=== PATIENT | male | born 1970 | race Caucasian/White ===

== ENCOUNTER 2016-12-29 05:52 | Inpatient (IN) ==
[2016-12-29] MEDS ORDERED: ONDANSETRON 4 MG/2 ML VIAL IV STA ×2 (06:16→07:35)
[2016-12-29] MEDS ORDERED: ONDANSETRON 4 MG/2 ML VIAL ONE ×2 (06:30→07:37)
[2016-12-29 06:35] LABS: Basophils # 0.1 10*3/uL (0.0-0.2); Basophils % 0.7 % (0.0-0.8); Eosinophils # 0.2 10*3/uL (0.0-0.87); Eosinophils % 1.9 % (0.00-10.9); Hematocrit 45.1 VOL% (42.0-52.0); Hemoglobin 16.2 GM/DL (14.0-18.0); Immature Granulocytes % 0.4 %; Immature Granulocytes Absolute 0.04 #; Lymphocytes # 1.8 10*3/uL (1.4-4.0); Lymphocytes % 16.8 % (21.2-54.2); Mean Corpuscular HGB Conc 35.9 GM/DL (32-36); Mean Corpuscular Hemoglobin 30 PG (27-34); Mean Corpuscular Volume 84.5 FL (87-102); Mean Platelet Volume 10.3 FL (9.6-12.0); Monocytes # 0.7 10*3/uL (0.11-0.8); Monocytes % 6.5 % (1.7-12.7); Neutrophils # 7.9 10*3/uL (1.4-7.4); Neutrophils % 73.7 % (38.7-73.9); Platelet Count 249 T/CUMM (130-400); Red Blood Count 5.34 MC/CUMM (3.8-5.5); White Blood Count 10.8 T/CUMM (4-12)
[2016-12-29 06:43] LABS: Apearance,Urine CLEAR (Clear); Bilirubin,Urine Negative (Negative); Blood, Urine Negative (Negative); Glucose,Urine (UA) Negative (Negative); Ketones,Urine Negative (Negative); Mucus,Urine Occasional /LPF (Occasional); Nitrite,Urine Negative (Negative); Protein,Urine Negative; RBC,Urine 1 /HPF (0-4); Squamous Epithelial Cell,Urine Occasional /HPF (0-10); Urine Color Yellow (Yellow); Urine Specific Gravity 1.027 (1.001-1.035); WBC,Urine 1 /HPF (0-6)
[2016-12-29 07:11] LABS: Bilirubin,Total 1.3 MG/DL (0.2-1.0); Osmolality,Calculated 281.3 MOS/KG (273-304); Potassium 3.8 MMOL/L (3.5-5.1); Total Protein 7.7 G/DL (6.4-8.3)
--- NOTE | 2016-12-29 07:24 | Ultrasound Report ---
Exam: US abdomen limited Date:12/29/2016 6:17 AM Indication: Right upper quadrant abdominal pain with nausea Comparison: None Findings: Liver: 15 cm. No focal abnormalities are present. Gallbladder: Cholelithiasis present with multiple stones. Pericholecystic fluid and pockets sonographic Diaz sign present. Anterior venegas 5 mm. CBD: 6 mm Pancreas: Obscured Kidneys Right kidney: 10.4 x 4.1 x 4.6 cm. No hydronephrosis perinephric fluid collections or focal mass Impression: 1. Cholelithiasis with small amount of pericholecystic fluid process sonographic Diaz sign consistent with acute cholecystitis Ultrasound images were stored and captured PROCEDURE INTERPRETED AT [facility] DEPARTMENT OF RADIOLOGY Final Report Signed by: Dr. Epifanio Bradford
[2016-12-29] MEDS ORDERED: HYDROmorphone 2 MG/1 ML VIAL IV STA (07:35)
[2016-12-29] MEDS ORDERED: HYDROmorphone 2 MG/1 ML VIAL ONE (07:37)
--- NOTE | 2016-12-29 08:11 | Emergency Department Note ---
Hannah Scott Emily, am scribing for, and in the presence of, Abraham Khan MD 06:16. Bill Scott Phillip K, MD, personally performed the services described in this documentation, ascribed by Heather Young in my presence, and it is both accurate and complete . Arrival - Arrival Chief Complaint: Abdominal / Flank Pain Stated Complaint: side on right lots of pain ED Nursing Triage Note: Patient to triage with c/o sharp right sided ABD pain that onset suddenly this morning around 0300 Mode of Arrival: Ambulatory Limitations: No Limitations Source: Patient - History of Present Illness HPI Narrative: Pt is a 46 y/o male who came to ED with c/o sharp right side of back that radiates to mid abdomen that started suddenly at 3am this morning. Pt notes having some nausea in waves, nml BM yesterday, but denies vomiting or coughing. Pt reports blockages in intestines in the past, with "some removal." Pt has hx of kidney stones about 2-3 yrs ago. Pt drinks ETOH occasionally, but denies drinking over this past weekend. Onset (ago): hour(s) Consistency: constant Severity: mild, moderate Severity scale (1-10): 4 Quality: sharp Allergies/Adverse Reactions: Allergies Allergy/AdvReac Type Severity Reaction Status Date / Time No Known Allergies Allergy Unverified 12/29/16 06:01 Home Medications: Home Medications Medication Instructions Recorded Confirmed Type No Known Home Medications [No 12/29/16 12/29/16 History Known Home Medications] Review of System - Review of System 12 point system: reviewed and no additional remarkable complaints except as stated - Review of System Constitutional: Absent: chills, fever, weakness Respiratory: Absent: respiratory distress Cardiovascular: Absent: chest pain, syncope Gastrointestinal: Present: abdominal pain (radiating from right side of back), nausea (in waves). Absent: vomiting, diarrhea Genitourinary male: Absent: dysuria, hematuria Musculoskeletal: Present: lower back pain (right side radiating to mid abdomen) . Absent: arm pain, leg pain, neck pain Skin: Absent: rash Neurological: Absent: headache Medical,Surgical,& Family Hx - Medical History Genitourinary: History of: Kidney Stones Gastrointestinal: History of: Bowel Obstruction - Family History Family History: noncontributory - Social History Smoking Status: Never smoker Frequency of Alcohol Use: Rarely Type of Drug Use: None Marital Status: Single Lives With:: Alone Functional capacity: independent ambulation Exam Vital Signs: Vital Signs Temperature 97.5 F L 12/29/16 05:59 Pulse Rate 64 12/29/16 07:25 Respiratory Rate 17 12/29/16 07:25 Blood Pressure 151/92 12/29/16 07:25 O2 Sat by Pulse Oximetry 100 12/29/16 07:25 - General General appearance: alert, in no apparent distress - Head Head exam: Present: atraumatic, normocephalic - Eye Eye exam: Present: PERRL, EOMI - ENT ENT exam: Present: mucous membranes moist. Absent: mucous membranes dry - Neck Neck exam: Present: full ROM, trachea midline - Chest Chest inspection: Present: symmetric chest wall rise - Respiratory Respiratory exam: Present: normal lung sounds bilaterally. Absent: respiratory distress - Cardiovascular Cardiovascular exam: Present: regular rate, normal rhythm, normal heart sounds - Abdominal Exam Abdominal exam: Present: soft, tenderness (RUQ). Absent: distention, guarding, rebound - Extremities Exam Extremities exam: Present: full ROM, tenderness. Absent: pedal edema - Back Exam Back exam: Present: full ROM. Absent: tenderness, CVA tenderness (R), CVA tenderness (L) - Neurological Exam Neurological exam: Present: alert, oriented X3, CN II-XII intact. Absent: motor sensory deficit - Psychiatric Psychiatric exam: Present: normal affect, normal mood - Skin Skin exam: Present: warm, dry Course Course Narrative: Patient discussed with Dr. Guerrero. Results - Labs CBC & BMP: 12/29/16 06:06 12/29/16 06:06 Lab Results: I have reviewed the patients labs Labs: Laboratory Tests 12/29/16 06:06 MCV 84.5 L Lymph % (Auto) 16.8 L Neut # (Auto) 7.9 H Laboratory Tests 12/29/16 06:06 Urine Color Yellow Urine Appearance Clear Urine pH 5.0 Ur Specific [place] 1.027 Urine Blood Negative Urine Nitrate Negative Urine Urobilinogen 2.0 H Urine Leukocytes Negative Urine RBC 1 Urine WBC 1 Ur Squamous Epith Cells Occasional Urine Mucus Occasional Laboratory Tests 12/29/16 06:06 Sodium 141 Potassium 3.8 Chloride 106 Carbon Dioxide 27 BUN 15 Creatinine 1.20 BUN/Creatinine Ratio 12.00 Glucose 107 H Total Bilirubin 1.30 H AST 69 H ALT 70 H Globulin 3.7 H Albumin/Globulin Ratio 1.0 L Lipase 225.0 - Diagnostic Findings Procedure: Chest x-ray: report reviewed by me, Ultrasound: report reviewed by me (Cholelithiasis with small amount of pericholecystic fluid process sonographic Daiz sign consistent with acute cholecystitis.) Disposition Clinical Impression: Cholelithiasis and cholecystitis without obstruction Case discussed with: patient Disposition: Still a Patient Condition: Guarded Additional Instructions: Admit to Dr. Guerrero
--- NOTE | 2016-12-29 08:47 | General Surgery Consult Note ---
Assessment and Plan - Time spent with patient Time spent with patient: Greater than 30 minutes (1) Cholelithiasis and cholecystitis without obstruction Status: Acute Assessment and plan: Patient appears to have acute cholecystitis with pericholecystic inflammation. He does have mildly elevated transaminases and bilirubin which may be related to pericholecystic inflammation or possibly to an occult common bile duct stone. I discussed the fact that this needs to be treated urgently with IV antibiotics and fluids and I would consider ERCP followed by laparoscopic cholecystectomy. He understands that laparoscopic cholecystectomy may not be feasible because of his previous trauma laparotomy and subsequent bowel obstructions with a complex midline scar. He understands that he might require an open procedure. He states that he wants to have his care done in [place] at [facility]. He wants to leave the emergency department and drive back to [place]. There are issues with him leaving right now because he has received pain medication. I have explained that I cannot give him pain medication for him to drive to [place]. I have offered to treat him here but he would like to be back in [place] where his family is located. This is where he lives. If he changes his mind I am happy to admit him and treat him here and he is to let me know if he changes his mind. If he has a receiving doctor at [facility] that he would like for me to talk to I am happy to do that as well. He and his are trying to decide what they want to do at this point. Current Visit: Yes History of Present Illness Chief complaint: Gallbladder History of present illness: Mr. Ojeda is a 46 year old male Who says that for a couple of months he has had intermittent aching in his right upper quadrant and early this morning had a severe attack of right upper quadrant pain that he described as a 10 out of 10 pain radiating to his back and accompanied by nausea. He has not been aware of any fever or chills or jaundice or acholic stools. He had an ultrasound obtained which showed gallstones and thickened gallbladder and a 6 mm common bile duct. Home Medications Medication Instructions Recorded Confirmed Type No Known Home Medications [No 12/29/16 12/29/16 History Known Home Medications] Allergies Allergy/AdvReac Type Severity Reaction Status Date / Time No Known Allergies Allergy Unverified 12/29/16 06:01 Medical,Surgical,& Family Hx - Medical History Genitourinary: History of: Kidney Stones Gastrointestinal: History of: Bowel Obstruction - Surgical History Abdominal Surgeries: Surgical HX of: Abdominal Surgery - Family History Family History: noncontributory - Social History Smoking Status: Never smoker Frequency of Alcohol Use: Rarely Type of Drug Use: None - Constitutional Constitutional: Present: anorexia. Absent: chills, fever(s), weight loss - Cardiovascular Cardiovascular: Absent: chest pain at rest, chest pain with activity, dyspnea, dyspnea on exertion, palpitations - Respiratory Respiratory: Absent: dyspnea, hemoptysis, dyspnea on exertion - Gastrointestinal Gastrointestinal: Present: abdominal pain, hematochezia, nausea. Absent: bloating, cramping, diarrhea, hematemesis, melena, vomiting, jaundice - Genitourinary Genitourinary: Absent: hematuria - Musculoskeletal Musculoskeletal: Absent: back pain - Neurological Neurological: Absent: focal weakness, syncope - Endocrine Endocrine: Absent: polyuria Exam - Constitutional Vitals: Period Temp Pulse Resp BP Sys/Edwards Pulse Ox Last 24 Hr 97.5 F-97.5 F 63-68 16-22 124-168/92-109 98-100 General appearance: no acute distress - Head Head exam: Present: normocephalic - Eye Eye exam: Absent: scleral icterus - ENT Mouth exam: Present: normal voice - Neck Neck exam: Present: trachea midline - Respiratory Respiratory exam: Present: clear to auscultation bilaterally. Absent: accessory muscle use - Cardiovascular Cardiovascular exam: Present: RRR - GI/Abdominal GI/Abdominal exam: Present: soft. Absent: distended, guarding, tenderness, rebound - Neurological Exam Neurological exam: Present: alert, oriented X3. Absent: motor sensory deficit Speech: Present: normal - Skin Skin exam: Present: normal color Results - Labs CBC & BMP: 12/29/16 06:06 12/29/16 06:06 Lab Results: I have reviewed the past 24 hour labs - Diagnostic Findings Procedure: Ultrasound: report reviewed by me
[2016-12-29] MEDS: PIPERACILLIN/TAZOBACTAM 3,375 MG in SODIUM CHLORIDE 0.9% 100 ML IV SCH ×2 (10:23→17:03)
[2016-12-29] MEDS: SODIUM CHLORIDE 0.45% 1,000 ML IV SCH ×2 (10:23→16:48)
[2016-12-30] MEDS: PIPERACILLIN/TAZOBACTAM 3,375 MG in SODIUM CHLORIDE 0.9% 100 ML IV SCH ×3 (02:41→17:06)
[2016-12-30] MEDS: SODIUM CHLORIDE 0.45% 1,000 ML IV SCH ×3 (02:41→16:32)
[2016-12-30] MEDS: ENOXAPARIN 40 MG/0.4 ML SYRINGE SUBCUT SCH (03:19)
--- NOTE | 2016-12-30 05:53 | EKG Report ---
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
[2016-12-30 06:39] LABS: Basophils # 0.1 10*3/uL (0.0-0.2); Basophils % 1.3 % (0.0-0.8); Eosinophils # 0.2 10*3/uL (0.0-0.87); Eosinophils % 3.4 % (0.00-10.9); Hematocrit 46.1 VOL% (42.0-52.0); Hemoglobin 16.4 GM/DL (14.0-18.0); Immature Granulocytes % 0.5 %; Immature Granulocytes Absolute 0.03 #; Lymphocytes % 31.3 % (21.2-54.2); Mean Corpuscular HGB Conc 35.6 GM/DL (32-36); Mean Corpuscular Hemoglobin 30 PG (27-34); Mean Corpuscular Volume 85.4 FL (87-102); Mean Platelet Volume 10.6 FL (9.6-12.0); Monocytes # 0.5 10*3/uL (0.11-0.8); Monocytes % 8.3 % (1.7-12.7); Neutrophils # 3.5 10*3/uL (1.4-7.4); Neutrophils % 55.2 % (38.7-73.9); Platelet Count 279 T/CUMM (130-400); Red Cell Distribution Width 13.1 % (9.3-17.3); White Blood Count 6.4 T/CUMM (4-12)
--- NOTE | 2016-12-30 06:45 | General Surgery Progress Note ---
Assessment and Plan (1) Cholelithiasis and cholecystitis without obstruction Status: Acute Assessment and plan: Patient appears to have acute cholecystitis with pericholecystic inflammation. He does have mildly elevated transaminases and bilirubin which may be related to pericholecystic inflammation or possibly to an occult common bile duct stone. I discussed the fact that this needs to be treated urgently with IV antibiotics and fluids and I would consider ERCP followed by laparoscopic cholecystectomy. He understands that laparoscopic cholecystectomy may not be feasible because of his previous trauma laparotomy and subsequent bowel obstructions with a complex midline scar. He understands that he might require an open procedure. He states that he wants to have his care done in [place] at [facility]. He wants to leave the emergency department and drive back to [place]. There are issues with him leaving right now because he has received pain medication. I have explained that I cannot give him pain medication for him to drive to [place]. I have offered to treat him here but he would like to be back in [place] where his family is located. This is where he lives. If he changes his mind I am happy to admit him and treat him here and he is to let me know if he changes his mind. If he has a receiving doctor at [facility] that he would like for me to talk to I am happy to do that as well. He and his are trying to decide what they want to do at this point. 12/30: He feels much better and his pain is largely resolved with antibiotics. His liver function tests are pending this morning. If they are elevated we will see about getting an ERCP. If they have normalized then we could proceed on with laparoscopic cholecystectomy. Procedure and risk of been discussed with he and his family. Current Visit: Yes Subjective Patient reports: Present: feels better. Absent: still having pain, nausea, vomiting, fever Exam - Constitutional Vitals: Period Temp Pulse Resp BP Sys/Edwards Pulse Ox Last 24 Hr 97.4 F-98.4 F 51-68 16-20 110-152/59-96 95-100 General appearance: no acute distress - Head Head exam: Present: normocephalic - Eye Eye exam: Absent: scleral icterus - ENT Mouth exam: Present: normal voice - Neck Neck exam: Present: trachea midline - Respiratory Respiratory exam: Absent: accessory muscle use - GI/Abdominal GI/Abdominal exam: Present: soft. Absent: distended, tenderness Results - Labs CBC & BMP: 12/30/16 06:15 12/29/16 06:06 Lab Results: I have reviewed the past 24 hour labs
[2016-12-30 07:05] LABS: Albumin 3.8 G/DL (3.4-5.0); Bilirubin,Total 3.1 MG/DL (0.2-1.0); Calcium 8.8 MG/DL (8.5-10.1); Osmolality,Calculated 277.5 MOS/KG (273-304); Potassium 4.3 MMOL/L (3.5-5.1); Total Protein 7.3 G/DL (6.4-8.3)
[2016-12-30] MEDS ORDERED: PANTOPRAZOLE 40 MG TABLET PO SCH (09:00)
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
[2016-12-30 10:36] LABS: PT Patient Result 10.7 SECS
[2016-12-30] MEDS ORDERED: GLUCAGON 1 MG VIAL ONE ×2 (10:49→10:50)
[2016-12-30] MEDS ORDERED: PROPOFOL 200 MG/20 ML VIAL IV ONE (11:00)
[2016-12-30] MEDS ORDERED: LIDOCAINE 1% 5 ML VIAL ONE (11:00)
[2016-12-30] MEDS ORDERED: LABETALOL 100 MG/20 ML VIAL IV ONE (11:00)
--- NOTE | 2016-12-30 11:26 | Operative Note ---
Date of procedure: 12/30/16 Pre-op diagnosis: Suspected choledocholithiasis Procedure: Endoscopic retrograde cholangiopancreatography with sphincterotomy and balloon stone extraction. 46-year-old white male admitted with acute abdominal pain elevated liver tests is progressed and concern of a possible choledocholithiasis with known cholelithiasis. Now for ERCP to further evaluate. Informed consent was obtained from the patient. Patient was sedated with MAC anesthesia per anesthesia protocol. Patient was placed in the prone position the Olympus flexible video duodenum scope was inserted blindly into the esophagus was subsequently advanced under direct vision through the esophagus stomach normal appearing pylorus to region of the duodenum. The ampulla appears essentially normal. Sphincterotome was utilized pancreatic duct was opacified revealing a normal pancreatic duct at the head body and tail the pancreas. Catheter was subsequently repositioned with selective cannulation of the common bile duct there is a question filling defect in the distal common bile duct otherwise no significant adenomyosis are seen. No tumors or strictures are noted. Cystic duct is patent. Cholelithiasis with identified. It was elected to proceed with sphincterotomy 8 mm sphincterotomy was performed good hemostasis. Subsequent balloon cath was a surgery to the yun hepatis inflated to 8 mm and pulled 2 in the duodenum with removal of stone fragments. Post film reveals good drainage of bile the procedure was terminated. Postop diagnosis: 1. Choledocholithiasis now status post successful ERCP sphincterotomy. Monitor liver tests and expect normalization 2. Cholelithiasis proceed with cholecystectomy per Dr. Guerrero Anesthesia: [facility] [place] Surgeon / Physician: Daniel Perez Estimated blood loss: none Specimens: none sent Condition: stable Disposition: post procedure unit Results - Labs CBC & BMP: 12/30/16 06:15 12/30/16 06:15 Discharge Plan - Discharge Medications No Action Omeprazole Magnesium [Prilosec Otc] 20 mg PO DAILY - Follow Up or Referral - Forms/Instructions
--- NOTE | 2016-12-30 11:31 | Anesthesia Post-Op ---
Anesthesia Post OP - Post Ansesthetic Evaluation Patient seen in post op: Yes Resp: within normal limits CV: within normal limits Mental: within normal limits Temp: within normal limits [id number]: within normal limits Nausea and Vomiting: within normal limits Pain: within normal limits
[2016-12-30] MEDS: ONDANSETRON 4 MG/2 ML VIAL IV PRN ×2 (12:32→17:37)
[2016-12-30] MEDS: MORPHINE 2 MG/1 ML SYRINGE IV PRN ×3 (12:32→20:13)
--- NOTE | 2016-12-30 13:30 | Event Note ---
I discussed laparoscopic cholecystectomy in detail with the patient and his along with the risks. Discussed the risks of infection, bleeding, conversion to open procedure, common bile duct bowel or liver injury, or bile leaks, etc. he understands and wishes to proceed
--- NOTE | 2016-12-30 14:09 | Fluoroscopy Report ---
Exam: [place] ERCP w sphincterotomy Date: 12/30/2016 10:01 AM Indication: Gallstones elevated liver function Comparison: Abdomen sonogram 12/29/2016 Findings: 12 cc of Omnipaque 240 was administered and 5 minutes and 50 seconds fluoroscopy time were utilized. The exam reveals passes of the wire into the CBD with opacification of the common bile duct which is slightly distended. Left and right biliary radicals are intact. The exam was no extravasation of contrast clearly seen. A balloon sweep was performed. Little contrast is demonstrated emptying into the ampulla. Sphincterotomy was performed. Urostomy time provided to Dr. Daniel Perez. Impression: Slightly test dilated common bile duct and biliary radicals with sphincterotomy performed with balloon sweep. No defined filling defect however noted. PROCEDURE INTERPRETED AT [facility] DEPARTMENT OF RADIOLOGY Final Report Signed by: Dr. Epifanio Bradford
[2016-12-31] MEDS: MORPHINE 2 MG/1 ML SYRINGE IV PRN ×2 (00:15→06:22)
[2016-12-31] MEDS: ONDANSETRON 4 MG/2 ML VIAL IV PRN ×4 (00:16→21:38)
[2016-12-31] MEDS: PIPERACILLIN/TAZOBACTAM 3,375 MG in SODIUM CHLORIDE 0.9% 100 ML IV SCH ×3 (02:00→17:27)
[2016-12-31] MEDS: ENOXAPARIN 40 MG/0.4 ML SYRINGE SUBCUT SCH (04:04)
[2016-12-31 05:31] LABS: Basophils % 0.3 % (0.0-0.8); Eosinophils % 0.1 % (0.00-10.9); Hematocrit 45.1 VOL% (42.0-52.0); Immature Granulocytes % 0.5 %; Immature Granulocytes Absolute 0.06 #; Lymphocytes % 8.6 % (21.2-54.2); Mean Corpuscular HGB Conc 35.5 GM/DL (32-36); Mean Corpuscular Hemoglobin 31 PG (27-34); Mean Corpuscular Volume 85.9 FL (87-102); Mean Platelet Volume 10.7 FL (9.6-12.0); Monocytes # 0.7 10*3/uL (0.11-0.8); Monocytes % 6.4 % (1.7-12.7); Neutrophils # 9.5 10*3/uL (1.4-7.4); Neutrophils % 84.1 % (38.7-73.9); Platelet Count 247 T/CUMM (130-400); Red Blood Count 5.25 MC/CUMM (3.8-5.5); Red Cell Distribution Width 13.2 % (9.3-17.3); White Blood Count 11.3 T/CUMM (4-12)
[2016-12-31 06:05] LABS: Albumin 3.6 G/DL (3.4-5.0); Bilirubin,Total 3.1 MG/DL (0.2-1.0); Calcium 8.8 MG/DL (8.5-10.1); Osmolality,Calculated 280.4 MOS/KG (273-304); Potassium 4.3 MMOL/L (3.5-5.1)
--- NOTE | 2016-12-31 07:00 | General Surgery Progress Note ---
Assessment and Plan - Time spent with patient Time spent with patient: Greater than 30 minutes (1) Cholelithiasis and cholecystitis without obstruction Status: Acute Assessment and plan: Patient appears to have acute cholecystitis with pericholecystic inflammation. He does have mildly elevated transaminases and bilirubin which may be related to pericholecystic inflammation or possibly to an occult common bile duct stone. I discussed the fact that this needs to be treated urgently with IV antibiotics and fluids and I would consider ERCP followed by laparoscopic cholecystectomy. He understands that laparoscopic cholecystectomy may not be feasible because of his previous trauma laparotomy and subsequent bowel obstructions with a complex midline scar. He understands that he might require an open procedure. He states that he wants to have his care done in [place] at [facility]. He wants to leave the emergency department and drive back to [place]. There are issues with him leaving right now because he has received pain medication. I have explained that I cannot give him pain medication for him to drive to [place]. I have offered to treat him here but he would like to be back in [place] where his family is located. This is where he lives. If he changes his mind I am happy to admit him and treat him here and he is to let me know if he changes his mind. If he has a receiving doctor at [place] that he would like for me to talk to I am happy to do that as well. He and his are trying to decide what they want to do at this point. 9: He feels much better and his pain is largely resolved with antibiotics. His liver function tests are pending this morning. If they are elevated we will see about getting an ERCP. If they have normalized then we could proceed on with laparoscopic cholecystectomy. Procedure and risk of been discussed with he and his family. Current Visit: Yes (2) Pancreatitis Status: Acute Assessment and plan: He appears to have developed pancreatitis since yesterday. He has increased pain and elevated lipase level. His vital signs are stable other than his blood pressure being up which I think is likely related to pain. I will hold off doing a cholecystectomy today. We will keep him n.p.o. and treat him with IV fluids to help with the pancreatitis will resolve in the next 24-48 hours. This plan was discussed in detail with he and his . Current Visit: Yes Qualifiers: Chronicity: acute Pancreatitis type: biliary Subjective Patient reports: Present: still having pain, nausea. Absent: vomiting, shortness of breath, fever Exam - Constitutional Vitals: Period Temp Pulse Resp BP Sys/Edwards Pulse Ox Last 24 Hr 97.0 F-98.2 F 55-83 16-23 117-177/76-101 96-99 General appearance: no acute distress - Head Head exam: Present: normocephalic - Eye Eye exam: Absent: scleral icterus - ENT Mouth exam: Present: normal voice - Neck Neck exam: Present: trachea midline - Respiratory Respiratory exam: Absent: accessory muscle use - GI/Abdominal GI/Abdominal exam: Present: distended, guarding, tenderness, soft. Absent: rebound Results - Labs CBC & BMP: 12/31/16 04:59 12/31/16 04:59 Lab Results: I have reviewed the past 24 hour labs
[2016-12-31] MEDS: SODIUM CHLORIDE 0.45% 1,000 ML IV SCH (08:10)
[2016-12-31] MEDS: HYDROmorphone 2 MG/1 ML VIAL IV PRN ×4 (08:23→21:51)
[2016-12-31] MEDS: PANTOPRAZOLE 40 MG VIAL IV SCH ×2 (08:23→21:38)
--- NOTE | 2016-12-31 09:34 | Gastrointestinal Progress Note ---
<Amelia Melendez - Last Filed: 12/31/16 09:32> Assessment and Plan (1) Cholelithiasis and cholecystitis without obstruction Status: Acute Assessment and plan: 12/31-post ERCP with onset of abdominal pain and nausea with findings of elevated lipase, acute pancreatitis. Laparoscopic cholecystectomy postponed at this time. Repeat lipase levels and continue n.p.o., IV fluids and pain management as needed. Plan an addendum to follow by Dr. Perez. 12/30-Sudden onset RUQ pain with nausea, with findings of cholelithiasis and cholecystitis, with elevated LFTS. Plans to proceed with ERCP today to further evaluate. Plan and addendum to follow by Dr Perez. Current Visit: Yes Gastroenterology - PN: Subj Interval history: CC: Abdominal pain/choledocholithiasis Patient is seen, awake and alert. States he did not rest well overnight due to the increased pain. Yesterday evening patient developed some upper quadrant abdominal pain with nausea. A lipase level was obtained at that time and noted to be over 29,000. Patient states that his pain level did begin to ease off somewhat this morning and his nausea is improved and reports no vomiting. He is afebrile without leukocytosis. His bilirubin remains at 3.1 however his transaminases are slightly trending downward. We will recheck his lipase level this morning. His cholecystectomy is postponed at this time due to acute pancreatitis post ERCP. Abdomen is soft, tender to palpation in the left upper quadrant. ROS: Denies shortness breath or chest pain Exam (Progress Note) - Constitutional Vitals: Period Temp Pulse Resp BP Sys/Edwards Pulse Ox Last 24 Hr 97.0 F-98.2 F 60-83 16-23 117-177/76-102 96-99 General appearance: normal weight, no acute distress - Head Head exam: Present: normal inspection, normocephalic - Eye Eye exam: Present: other (Lids and conjunctive are unremarkable). Absent: scleral icterus - ENT ENT exam: Present: normal exam, normal oropharynx - Neck Neck exam: Present: normal inspection - Respiratory Respiratory exam: Present: clear to auscultation bilaterally. Absent: rales, rhonchi, wheezes - Cardiovascular Cardiovascular exam: Present: regular rate and rhythm. Absent: diastolic murmur , JVD, systolic murmur - GI/Abdominal GI/Abdominal exam: Present: normal bowel sounds, tenderness, soft. Absent: ascites, distended, mass, organomegaly - Extremities Exam Extremities exam: Present: normal inspection, full ROM - Back Exam Back exam: Present: normal inspection - Neurological Exam Neurological exam: Present: alert, oriented X3 - Psychiatric Psychiatric exam: Present: normal affect, normal mood - Skin Skin exam: Present: normal color, warm, dry Results - Labs CBC & BMP: 12/31/16 04:59 12/31/16 04:59 Lab Results: I have reviewed the past 24 hour labs <Daniel Perez - Last Filed: 12/31/16 10:31> Exam (Progress Note) - Constitutional Vitals: Period Temp Pulse Resp BP Sys/Edwards Pulse Ox Last 24 Hr 97.0 F-98.2 F 60-83 16-23 117-177/76-102 96-99 Results - Labs CBC & BMP: 12/31/16 04:59 12/31/16 04:59
[2016-12-31] MEDS: diphenhydrAMINE CAP 25 MG CAPSULE PO PRN (11:12)
[2017-01-01 03:47] LABS: Basophils % 0.2 % (0.0-0.8); Hematocrit 44.5 VOL% (42.0-52.0); Hemoglobin 15.5 GM/DL (14.0-18.0); Immature Granulocytes % 0.4 %; Immature Granulocytes Absolute 0.06 #; Lymphocytes # 0.9 10*3/uL (1.4-4.0); Mean Corpuscular HGB Conc 34.8 GM/DL (32-36); Mean Corpuscular Hemoglobin 30 PG (27-34); Mean Corpuscular Volume 87.3 FL (87-102); Mean Platelet Volume 10.8 FL (9.6-12.0); Monocytes # 1.4 10*3/uL (0.11-0.8); Monocytes % 8.8 % (1.7-12.7); Neutrophils % 84.6 % (38.7-73.9); Platelet Count 218 T/CUMM (130-400); Red Cell Distribution Width 13.2 % (9.3-17.3); White Blood Count 15.4 T/CUMM (4-12)
[2017-01-01] MEDS: PIPERACILLIN/TAZOBACTAM 3,375 MG in SODIUM CHLORIDE 0.9% 100 ML IV SCH ×3 (03:59→17:02)
[2017-01-01] MEDS: SODIUM CHLORIDE 0.45% 1,000 ML IV SCH ×3 (03:59→17:01)
[2017-01-01] MEDS: ENOXAPARIN 40 MG/0.4 ML SYRINGE SUBCUT SCH ×2 (04:00→04:03)
[2017-01-01 04:28] LABS: Albumin 3.2 G/DL (3.4-5.0); Bilirubin,Total 2.3 MG/DL (0.2-1.0); Calcium 8.7 MG/DL (8.5-10.1); Total Protein 6.7 G/DL (6.4-8.3)
[2017-01-01 04:29] LABS: Osmolality,Calculated 276.7 MOS/KG (273-304); Potassium 4.1 MMOL/L (3.5-5.1)
--- NOTE | 2017-01-01 08:22 | General Surgery Progress Note ---
Assessment and Plan (1) Cholelithiasis and cholecystitis without obstruction Status: Acute Assessment and plan: Patient appears to have acute cholecystitis with pericholecystic inflammation. He does have mildly elevated transaminases and bilirubin which may be related to pericholecystic inflammation or possibly to an occult common bile duct stone. I discussed the fact that this needs to be treated urgently with IV antibiotics and fluids and I would consider ERCP followed by laparoscopic cholecystectomy. He understands that laparoscopic cholecystectomy may not be feasible because of his previous trauma laparotomy and subsequent bowel obstructions with a complex midline scar. He understands that he might require an open procedure. He states that he wants to have his care done in [place] at [facility]. He wants to leave the emergency department and drive back to [place]. There are issues with him leaving right now because he has received pain medication. I have explained that I cannot give him pain medication for him to drive to [place]. I have offered to treat him here but he would like to be back in [place] where his family is located. This is where he lives. If he changes his mind I am happy to admit him and treat him here and he is to let me know if he changes his mind. If he has a receiving doctor at [place] that he would like for me to talk to I am happy to do that as well. He and his are trying to decide what they want to do at this point. 12/30: He feels much better and his pain is largely resolved with antibiotics. His liver function tests are pending this morning. If they are elevated we will see about getting an ERCP. If they have normalized then we could proceed on with laparoscopic cholecystectomy. Procedure and risk of been discussed with he and his family. Current Visit: Yes (2) Pancreatitis Status: Acute Assessment and plan: He appears to have developed pancreatitis since yesterday. He has increased pain and elevated lipase level. His vital signs are stable other than his blood pressure being up which I think is likely related to pain. I will hold off doing a cholecystectomy today. We will keep him n.p.o. and treat him with IV fluids to help with the pancreatitis will resolve in the next 24-48 hours. This plan was discussed in detail with he and his . 01/01: He looks and feels much better. He has normal vital signs. He has had some low-grade fever and also elevated white blood cell count. This may all be from pancreatitis which could either be from a passed stone or from the ERCP itself. His lipase level is still elevated but markedly decreased from a couple of days ago. I had a long discussion with his family and the patient regarding the need for cholecystectomy. I do not feel that he needs it while he has active pancreatitis. Once he is over the pancreatitis I would look at getting a elective laparoscopic cholecystectomy soon. He would like to have this done in [place]. He would like to be discharged as soon as possible which I think could be as early as tomorrow or Tuesday once his pancreatitis is resolved. We will try right that by mouth and see if he tolerates this. I think that his pancreatitis is resolving. We will check a chest x-ray because of the fever and elevated white blood cell count. Current Visit: Yes Qualifiers: Chronicity: acute Pancreatitis type: biliary Subjective Patient reports: Present: feels better, still having pain, pain is less, fever. Absent: nausea, vomiting, shortness of breath Exam - Constitutional Vitals: Period Temp Pulse Resp BP Sys/Edwards Pulse Ox Last 24 Hr 98.0 F-100.7 F 65-94 14-20 122-150/75-97 90-96 General appearance: no acute distress - Head Head exam: Present: normocephalic - Eye Eye exam: Absent: scleral icterus - Respiratory Respiratory exam: Absent: accessory muscle use - GI/Abdominal GI/Abdominal exam: Present: soft. Absent: distended, tenderness Results - Labs CBC & BMP: 01/01/17 03:04 01/01/17 03:04 Lab Results: I have reviewed the past 24 hour labs
[2017-01-01] MEDS: PANTOPRAZOLE 40 MG VIAL IV SCH ×3 (08:54→21:34)
[2017-01-01] MEDS: ACETAMINOPHEN 325 MG TABLET PO PRN ×2 (09:01→17:50)
--- NOTE | 2017-01-01 09:24 | Event Note ---
The patient and his family change their mind. Would like to have the surgery done here. I explained that he may be ready for cholecystectomy tomorrow. We had a long discussion regarding the risks which may be somewhat increased in his case because of his previous abdominal operations and recent pancreatitis. I understand he may have a higher risk of conversion to open procedure and also risk of infection, bleeding, injury to liver, injury or bile duct, injury to bowel,, etc.
--- NOTE | 2017-01-01 12:00 | Gastrointestinal Progress Note ---
Assessment and Plan (1) Choledocholithiasis with obstruction Status: Acute Assessment and plan: This is a patient Dr. Perez is that I am seeing over the weekend while he is off call. Obstructing stone relieved during ERCP yesterday by Dr. Perez, the patient's lipase level continues to fall as does his bilirubin. Hepatic transaminases appear to be doing better as well. Unfortunately patient's white blood cell count appears to be increasing. This may be a result of the pancreatitis or from bacteria reflux into the biliary tree during the ERCP itself. With the transaminases improving I doubt that there is ascending cholangitis present especially with the duct being cleared at this point. I believe that it is important to go ahead with a cholecystectomy at this point and believe this potential source of infection, provided the patient's laboratories look adequate tomorrow. Will add Flagyl for additional anaerobic coverage at this point. Current Visit: Yes (2) Acute gallstone pancreatitis Status: Acute Assessment and plan: Patient status post ERCP. This does not ensure that further stones could not enter into the common bile duct post ERCP clearance. It may be advisable to consider doing an intraoperative cholangiogram during the cholecystectomy. Observe for further improvement versus worsening of the bilirubin/LFTs/lipase over time. Current Visit: Yes (3) Leukocytosis Status: Acute Assessment and plan: Again I have added Flagyl to the patient's current dosing with Zosyn. This should be adequate for suppressing most gram-negative aerobic and anaerobic arun. Will observe with the white blood cell count is tomorrow before the patient has to go to surgery. Current Visit: Yes Gastroenterology - PN: Subj Interval history: The patient's bilirubin appears to be getting better having dropped from 3.1 down to 2.3 status post ERCP yesterday with removal of a stone from the distal common bile duct after sphincterotomy by Dr. Perez. The patient's ALT is down from 506-->250 and AST is dropped from 352-->68 consistent with resolving pancreatitis and gallstone induced hepatitis. Unfortunately the patient's white blood cell count has increased to 15.4, initial 6.4 consistent with possible infection, although his temperature is not increased. He is already on Zosyn. Patient still is having some abdominal at this time, he is ready to undergo cholecystectomy tomorrow if his laboratories look better. Exam (Progress Note) - Constitutional Vitals: Period Temp Pulse Resp BP Sys/Edwards Pulse Ox Last 24 Hr 98.0 F-100.7 F 65-94 16-20 122-150/75-97 90-97 General appearance: mild distress - Head Head exam: Present: normocephalic - Eye Eye exam: Present: EOMI Pupils: Present: JIMMIE - Respiratory Respiratory exam: Present: clear to auscultation bilaterally - Cardiovascular Cardiovascular exam: Present: regular rate and rhythm - GI/Abdominal GI/Abdominal exam: Present: distended, firm, tenderness (Mostly in the right upper quadrant close to midline, some voluntary guarding noted--mild distention) - Extremities Exam Extremities exam: Absent: edema - Neurological Exam Neurological exam: Present: alert, oriented X3, CN II-XII intact. Absent: motor sensory deficit - Psychiatric Psychiatric exam: Present: normal affect, normal mood Results - Labs CBC & BMP: 01/01/17 03:04 01/01/17 03:04
[2017-01-01] MEDS: HYDROmorphone 2 MG/1 ML VIAL IV PRN ×2 (13:42→20:44)
[2017-01-01] MEDS: ONDANSETRON 4 MG/2 ML VIAL IV PRN ×2 (13:42→20:41)
--- NOTE | 2017-01-01 14:45 | XRay Report ---
History: Fever. Elevated white blood cell count Date: 01/01/2017 Study: Chest x-ray PA and lateral Comparison exam: No previous chest x-ray available for comparison There is borderline cardiomegaly. There is no mediastinal mass. The pulmonary vasculature is not engorged. There is no pleural effusion. There is some platelike atelectasis in the lung bases, more so on the right. There is a vague nodular density overlying the left lung base laterally, measuring 26 mm. Underlying pulmonary nodule cannot be excluded. The upper lungs are clear. There is no layering pleural effusion. No acute osseous abnormality is seen. Impression: Bibasilar atelectasis. Equivocal lung nodule superimposed over the left lung base. Follow-up chest x-ray is recommended. If this does not resolve, CT chest may be needed. PROCEDURE INTERPRETED AT [facility] DEPARTMENT OF RADIOLOGY Final Report Signed by: Dr. Margarita Stanford
[2017-01-01] MEDS: metroNIDAZOLE INJ 500 MG in PREMIX 1 EACH IV SCH ×2 (15:16→23:21)
[2017-01-02] MEDS: ACETAMINOPHEN 325 MG TABLET PO PRN (01:00)
[2017-01-02] MEDS: ONDANSETRON 4 MG/2 ML VIAL IV PRN ×2 (02:22→14:28)
[2017-01-02] MEDS: HYDROmorphone 2 MG/1 ML VIAL IV PRN (02:25)
[2017-01-02] MEDS: PIPERACILLIN/TAZOBACTAM 3,375 MG in SODIUM CHLORIDE 0.9% 100 ML IV SCH ×3 (02:29→17:21)
[2017-01-02] MEDS: ENOXAPARIN 40 MG/0.4 ML SYRINGE SUBCUT SCH (03:15)
[2017-01-02 03:39] LABS: Basophils # 0.1 10*3/uL (0.0-0.2); Basophils % 0.4 % (0.0-0.8); Eosinophils % 0.2 % (0.00-10.9); Hemoglobin 14.1 GM/DL (14.0-18.0); Immature Granulocytes % 0.4 %; Immature Granulocytes Absolute 0.07 #; Lymphocytes # 0.9 10*3/uL (1.4-4.0); Lymphocytes % 5.6 % (21.2-54.2); Mean Corpuscular HGB Conc 35.3 GM/DL (32-36); Mean Corpuscular Hemoglobin 31 PG (27-34); Mean Corpuscular Volume 86.4 FL (87-102); Mean Platelet Volume 10.8 FL (9.6-12.0); Monocytes # 1.5 10*3/uL (0.11-0.8); Monocytes % 9.6 % (1.7-12.7); Neutrophils # 13.2 10*3/uL (1.4-7.4); Neutrophils % 83.8 % (38.7-73.9); Platelet Count 218 T/CUMM (130-400); Red Blood Count 4.63 MC/CUMM (3.8-5.5); White Blood Count 15.8 T/CUMM (4-12)
[2017-01-02 04:45] LABS: Albumin 3.1 G/DL (3.4-5.0); Bilirubin,Direct 1.23 MG/DL (0.0-0.20); Bilirubin,Indirect 1.4 MG/DL (0.0-1.0); Bilirubin,Total 2.6 MG/DL (0.2-1.0); Total Protein 6.5 G/DL (6.4-8.3)
[2017-01-02] MEDS ORDERED: TISSUE ADHESIVE 1 EACH APPLICATOR TOP ONE (06:44)
[2017-01-02] MEDS ORDERED: LIDOCAINE 1%/EPI INJ 20 ML VIAL ONE (06:45)
--- NOTE | 2017-01-02 07:34 | Gastrointestinal Progress Note ---
Assessment and Plan (1) Choledocholithiasis with obstruction Status: Acute Assessment and plan: This is a patient Dr. Perez is that I am seeing over the weekend while he is off call. Obstructing stone relieved during ERCP yesterday by Dr. Perez, the patient's lipase level continues to fall as does his bilirubin. Hepatic transaminases appear to be doing better as well. Unfortunately patient's white blood cell count appears to be increasing. This may be a result of the pancreatitis or from bacteria reflux into the biliary tree during the ERCP itself. With the transaminases improving I doubt that there is ascending cholangitis present especially with the duct being cleared at this point. I believe that it is important to go ahead with a cholecystectomy at this point and believe this potential source of infection, provided the patient's laboratories look adequate tomorrow. Will add Flagyl for additional anaerobic coverage at this point. 01/02/17--Seen while awaiting surgery. I note the patient's white blood cell count has not appreciably changed since yesterday however his lipase levels down to the 500 range and his liver function tests continue to improve except for the bilirubin which remains static. It would be helpful to get a intraoperative cholangiogram to make sure the duct is clear. Hopefully white blood cell count will come down more appreciably with the gallbladder gone. This may be elevated because of ongoing cholecystitis. Dr. Perez will be back tomorrow. Current Visit: Yes (2) Acute gallstone pancreatitis Status: Acute Assessment and plan: Patient status post ERCP. This does not ensure that further stones could not enter into the common bile duct post ERCP clearance. It may be advisable to consider doing an intraoperative cholangiogram during the cholecystectomy. Observe for further improvement versus worsening of the bilirubin/LFTs/lipase over time. 01/02/17--improved. Current Visit: Yes (3) Leukocytosis Status: Acute Assessment and plan: Again I have added Flagyl to the patient's current dosing with Zosyn. This should be adequate for suppressing most gram-negative aerobic and anaerobic arun. Will observe with the white blood cell count is tomorrow before the patient has to go to surgery. 01/02/17--Unfortunately the Flagyl did not result in much improvement. Observe white blood cell count after surgery is complete. Current Visit: Yes Gastroenterology - PN: Subj Interval history: Patient rating pain at about a 3 out of 10 in intensity, he has left for surgery. The nurses state that he is getting nauseated with his Dilaudid but this is benefited by taking the Zofran first. Exam (Progress Note) - Constitutional Vitals: Period Temp Pulse Resp BP Sys/Edwards Pulse Ox Last 24 Hr 98.2 F-100.0 F 78-96 16-22 139-155/49-98 90-97 General appearance: no acute distress - Head Head exam: Present: normocephalic - Eye Eye exam: Present: EOMI - Respiratory Respiratory exam: Present: clear to auscultation bilaterally - Cardiovascular Cardiovascular exam: Present: regular rate and rhythm - GI/Abdominal GI/Abdominal exam: Present: tenderness - Neurological Exam Neurological exam: Present: alert, oriented X3 - Psychiatric Psychiatric exam: Present: normal affect, normal mood Results - Labs CBC & BMP: 01/02/17 02:31 01/01/17 03:04
[2017-01-02] MEDS: metroNIDAZOLE INJ 500 MG in PREMIX 1 EACH IV SCH ×2 (07:36→15:10)
[2017-01-02] MEDS: SODIUM CHLORIDE 0.45% 1,000 ML IV SCH ×4 (08:40→17:21)
--- NOTE | 2017-01-02 09:10 | Fluoroscopy Report ---
History: Patient with gallstones and abdominal pain undergoing cholecystectomy Date: 01/02/2017 Study: Intraoperative cholangiogram Comparison exam: No previous similar Single spot films from intraoperative cholangiogram is submitted. Contrast material was injected into the biliary tree via the cystic duct stump in this patient undergoing cholecystectomy. There is no abnormal filling defect within the common bile duct to suggest choledochal stone. There is contrast material in the second portion of the duodenum compatible with patency of the common bile duct. The hepatic ducts are only partially visualized and partially opacified, but are grossly unremarkable where partially seen. 33.9 seconds fluoroscopy time was utilized by the surgeon. 20 mL contrast was injected. A single spot film is captured and archived. Impression: Grossly unremarkable intraoperative cholangiogram in this patient undergoing cholecystectomy PROCEDURE INTERPRETED AT [facility] DEPARTMENT OF RADIOLOGY Final Report Signed by: Dr. Margarita Stanford
--- NOTE | 2017-01-02 09:17 | Operative Note ---
Date of procedure: 01/02/17 Pre-op diagnosis: Acute cholecystitis with choledocholithiasis Post-op diagnosis: same Procedure: Laparoscopic converted to open cholecystectomy with intraoperative cholangiogram (22) Findings and technique: After informed consent was obtained the patient was brought the operating room and placed in supine position. After successful induction with general anesthesia which was tolerated well the patient's abdomen was prepped and draped in usual sterile fashion. Local anesthesia was infiltrated in the right subcostal area in the right upper quadrant were hoped to find a free peritoneal space. The patient had a large complex midline incision extending from his xiphoid to his pubis. I made a small incision and dissected layer by layer to the peritoneum and entered the peritoneal space visualizing colon and omentum. This did not appear to be a free space. I placed a Nate cannula with a blunt tip. A I gently inserted gas and the camera in place dissected carefully with the tip of the camera under camera vision trying to find a free space in the right upper quadrant. It was immediately apparent that there was no free intraperitoneal space and this approach was abandoned. I then enlarged this incision medially and laterally creating a [place] type right subcostal incision. I then carefully dissected omentum and hepatic flexure of colon free exposing the gallbladder and the right lobe of the liver lateral to the gallbladder. I tried to keep my initial dissection lateral as no structures medial to the gallbladder could be clearly delineated in this severely scarred peritoneal cavity. I could not identify stomach or duodenum. There was a good deal of intra-abdominal fat and omentum in this location. I stayed right on the surface of the right lateral fundus and body of the gallbladder carefully dissecting colon and omentum off of it. Gallbladder appeared to be diseased and thickened but was not gangrenous. I traced down the body of the gallbladder towards the gallbladder neck. I then staying on the surface of the gallbladder freed omentum off of the surface of the gallbladder. I opened the gallbladder and suctioned it free so that I could work from the inside of the gallbladder to help delineate the course of the gallbladder in this operative field. I carefully dissected down to the gallbladder neck retracting the gallbladder neck laterally and exposing the cystic artery as it branched over the medial neck. I then made an incision in the gallbladder neck inserted a cholangiogram catheter and encircled at high across the distal gallbladder neck and shot a cholangiogram under fluoroscopy which delineated the biliary anatomy. This did not show any obstruction of the common bile duct and showed that I had a rather long cystic duct and that I was well away from the common hepatic and common bile ducts. I was then able to ligate the gallbladder at the distal gallbladder neck and far a large Hemoclip just below this. I felt that I was well away from the structures in the hepatoduodenal ligament which I could not visualize intraoperatively but was able to delineate well with the cholangiogram. I placed the tied right at the point that I placed a Amanda clamp to delineate the distal gallbladder neck on fluoroscopy. The gallbladder was then removed and the right upper quadrant liberally irrigated and inspected. There was no bleeding or bile leakage noted. A 10 mm LOGAN drain was placed in the subhepatic space and brought out through separate stab incision laterally. The incision was closed with sponge and instrument counts correct at the time of closure. The fascia was closed in 2 layers of running #1 PDS suture and the skin closed with skin clips. He appeared to tolerate the procedure well. This was a much more difficult procedure than usual because of his scarred gallbladder and extensive adhesions from previous abdominal operations. These factors greatly added to the complexity and difficulty the case essentially doubling her tripling the usual expected operative time. Anesthesia: GETA, local Surgeon / Physician: Gonzalo Guerrero III. Estimated blood loss: minimal Specimens: other (Gallbladder) Condition: stable Disposition: PACU Results - Labs CBC & BMP: 01/02/17 02:31 01/01/17 03:04 Discharge Plan - Discharge Medications No Action Omeprazole Magnesium [Prilosec Otc] 20 mg PO DAILY - Follow Up or Referral - Forms/Instructions
[2017-01-02] MEDS ORDERED: NALOXONE 0.4 MG/ML VIAL IV PRN (09:20)
[2017-01-02] MEDS ORDERED: ALBUTEROL/IPRATROPIUM 3 ML NEB RESP TX ONE (09:21)
[2017-01-02] MEDS ORDERED: HYDROmorphone 2 MG/1 ML VIAL ONE (09:31)
[2017-01-02] MEDS ORDERED: DESFLURANE 1 UNIT/15 MINUTE INH ONE (09:31)
[2017-01-02] MEDS ORDERED: PROPOFOL 200 MG/20 ML VIAL IV ONE (09:31)
[2017-01-02] MEDS ORDERED: ACETAMINOPHEN 1,000 MG/100 ML VIAL IV ONE (09:32)
[2017-01-02] MEDS ORDERED: MIDAZOLAM 2 MG/2 ML VIAL ONE (09:32)
[2017-01-02] MEDS ORDERED: GLYCOPYRROLATE 0.4 MG/2 ML VIAL ONE (09:32)
[2017-01-02] MEDS ORDERED: NEOSTIGMINE 10 MG/10 ML VIAL ONE (09:32)
[2017-01-02] MEDS ORDERED: LACTATED RINGERS 1,000 ML IV ONE (09:32)
[2017-01-02] MEDS ORDERED: ROCURONIUM 100 MG/10 ML VIAL IV ONE (09:32)
[2017-01-02] MEDS ORDERED: fentaNYL 100 MCG/2 ML VIAL ONE (09:32)
[2017-01-02] MEDS ORDERED: ONDANSETRON 4 MG/2 ML VIAL ONE (09:32)
[2017-01-02] MEDS: HYDROmorphone PCA 30 MG/30 ML SYRINGE IV SCH (10:58)
[2017-01-02] MEDS: PANTOPRAZOLE 40 MG VIAL IV SCH ×2 (11:00→21:38)
--- NOTE | 2017-01-02 11:18 | Anesthesia Post-Op ---
Anesthesia Post OP - Post Ansesthetic Evaluation Patient seen in post op: Yes Resp: within normal limits CV: within normal limits Mental: within normal limits Temp: within normal limits [id number]: within normal limits Nausea and Vomiting: within normal limits Pain: within normal limits
[2017-01-02] MEDS: diphenhydrAMINE CAP 25 MG CAPSULE PO PRN (11:20)
[2017-01-03] MEDS: metroNIDAZOLE INJ 500 MG in PREMIX 1 EACH IV SCH ×4 (00:10→22:49)
[2017-01-03] MEDS: PIPERACILLIN/TAZOBACTAM 3,375 MG in SODIUM CHLORIDE 0.9% 100 ML IV SCH ×3 (02:37→17:44)
[2017-01-03] MEDS: ENOXAPARIN 40 MG/0.4 ML SYRINGE SUBCUT SCH (05:40)
[2017-01-03 06:27] LABS: Basophils # 0.1 10*3/uL (0.0-0.2); Basophils % 0.5 % (0.0-0.8); Eosinophils # 0.1 10*3/uL (0.0-0.87); Eosinophils % 0.8 % (0.00-10.9); Hematocrit 39.3 VOL% (42.0-52.0); Hemoglobin 13.7 GM/DL (14.0-18.0); Immature Granulocytes % 0.5 %; Immature Granulocytes Absolute 0.07 #; Lymphocytes # 0.9 10*3/uL (1.4-4.0); Lymphocytes % 7.1 % (21.2-54.2); Mean Corpuscular HGB Conc 34.9 GM/DL (32-36); Mean Corpuscular Hemoglobin 30 PG (27-34); Mean Corpuscular Volume 86.9 FL (87-102); Mean Platelet Volume 10.1 FL (9.6-12.0); Monocytes # 1.5 10*3/uL (0.11-0.8); Monocytes % 11.2 % (1.7-12.7); NRBC # 0.02 10*3/uL; Neutrophils # 10.6 10*3/uL (1.4-7.4); Neutrophils % 79.9 % (38.7-73.9); Platelet Count 243 T/CUMM (130-400); Red Blood Count 4.52 MC/CUMM (3.8-5.5); White Blood Count 13.3 T/CUMM (4-12)
[2017-01-03 06:51] LABS: Albumin 2.8 G/DL (3.4-5.0); Bilirubin,Total 2.3 MG/DL (0.2-1.0); Calcium 8.7 MG/DL (8.5-10.1); Potassium 3.8 MMOL/L (3.5-5.1); Total Protein 6.5 G/DL (6.4-8.3)
--- NOTE | 2017-01-03 08:18 | Event Note ---
He feels much better. He states that he has much less right upper quadrant pain since his gallbladder was removed. He is having a little difficulty urinating. His abdomen appears benign. His vital signs are stable. He had some low-grade temperature last night so I would like to push ambulation and pulmonary toilet today. He may be ready for discharge by tomorrow morning.
--- NOTE | 2017-01-03 09:16 | Gastrointestinal Progress Note ---
<Amelia Melendez - Last Filed: 01/03/17 09:12> Assessment and Plan (1) Cholelithiasis and cholecystitis without obstruction Status: Acute Assessment and plan: 01/03-postop day 1 open cholecystectomy. LFTs noted as below. Pancreatitis improving. Continue to monitor present time. Plan an addendum to follow by Dr. Perez. 12/31-post ERCP with onset of abdominal pain and nausea with findings of elevated lipase, acute pancreatitis. Laparoscopic cholecystectomy postponed at this time. Repeat lipase levels and continue n.p.o., IV fluids and pain management as needed. Plan an addendum to follow by Dr. Perez. 12/30-Sudden onset RUQ pain with nausea, with findings of cholelithiasis and cholecystitis, with elevated LFTS. Plans to proceed with ERCP today to further evaluate. Plan and addendum to follow by Dr Perez. Current Visit: Yes Gastroenterology - PN: Subj Interval history: CC: Cholecystitis with choledocholithiasis, pancreatitis Patient is seen awake and alert sitting up in chair eating breakfast. States that he had a difficult weekend due to the pain associated with his pancreatitis but this is improving today. He is postop laparoscopic cholecystectomy which was converted to open procedure due to patient's extensive abdominal surgery in the past. Intraoperative cholangiogram was done which was grossly unremarkable. His lipase level was down on yesterday to 502. Bilirubin is down today at 2.3 with his ALT trending downward. His WBCs are also trending down now at 13,000. Abdomen is soft, tender to palpation. He is tolerating his diet with fair appetite at present time but no nausea or vomiting. He was also noted to have a low-grade temp overnight. Tentative plans for discharge home tomorrow if he continues to improve. ROS: Denies shortness of breath or chest pain Exam (Progress Note) - Constitutional Vitals: Period Temp Pulse Resp BP Sys/Edwards Pulse Ox Last 24 Hr 97.3 F-99.4 F 89-118 14-22 107-165/78-102 90-98 General appearance: normal weight, no acute distress - Head Head exam: Present: normal inspection, normocephalic - Eye Eye exam: Present: other (Lids and conjunctive are unremarkable). Absent: scleral icterus - ENT ENT exam: Present: normal exam, normal oropharynx - Neck Neck exam: Present: normal inspection - Respiratory Respiratory exam: Present: clear to auscultation bilaterally. Absent: rales, rhonchi, wheezes - Cardiovascular Cardiovascular exam: Present: regular rate and rhythm. Absent: diastolic murmur , JVD, systolic murmur - GI/Abdominal GI/Abdominal exam: Present: normal bowel sounds, soft. Absent: ascites, distended, mass, organomegaly, tenderness - Extremities Exam Extremities exam: Present: normal inspection, full ROM - Back Exam Back exam: Present: normal inspection - Neurological Exam Neurological exam: Present: alert, oriented X3 - Psychiatric Psychiatric exam: Present: normal affect, normal mood - Skin Skin exam: Present: normal color, warm, dry Results - Labs CBC & BMP: 01/03/17 05:39 01/03/17 05:39 Lab Results: I have reviewed the past 24 hour labs Specialty Discharge - Follow Up or Referrals Follow up with: Gonzalo Guerrero III., MD [Physician] - <Daniel Perez - Last Filed: 01/03/17 18:07> Exam (Progress Note) - Constitutional Vitals: Period Temp Pulse Resp BP Sys/Edwards Pulse Ox Last 24 Hr 97.3 F-99.3 F 90-105 14-20 136-160/84-96 90-98 Results - Labs CBC & BMP: 01/03/17 05:39 01/03/17 05:39
[2017-01-03] MEDS: DOCUSATE SODIUM 100 MG CAPSULE PO PRN (09:38)
[2017-01-03] MEDS: PANTOPRAZOLE 40 MG VIAL IV SCH ×2 (09:39→21:12)
[2017-01-03] MEDS: HYDROmorphone PCA 30 MG/30 ML SYRINGE IV SCH (09:42)
[2017-01-03] MEDS: SODIUM CHLORIDE 0.45% 1,000 ML IV SCH ×3 (12:24→22:49)
--- NOTE | 2017-01-03 12:27 | Pathology Report from [facility] ---
[facility] ACCESSION # : [id number] PATIENT NAME : Sivakumar Ojeda ORDERING DR : VANCE BEAULIEU III, MD CLINICAL HX: Cholecystitis w/cholelithiasis POST-OP DX: Same SPECIMEN INFO: Gallbladder GROSS DESCRIPTION: Received in formalin labeled SIVAKUMAR OJEDA is an intact gallbladder measuring 7.0 x 3.2 cm. The serosa is smooth and erythematous. The gallbladder wall has an average thickness of 0.4 cm. The mucosal surface displays diffuse yellow streaking. The lumen contains hemorrhagic bile with a single yellow brown stone noted measuring 1.5 x 1.0 cm. Dispensing [employer]asuring [employer]ician sections are submitted in one cassette. DIAGNOSIS FOR SIVAKUMAR OJEDA: GALLBLADDER: Chronic cholecystitis. Cholelithiasis. No evidence of malignancy. COLLECTED DATE: 01/03/2017 [facility] REPORT DATE: 01/03/2017 ELECTRONICALLY SIGNED BY: Lien Valadez III, M.D. 01/03/2017 - 9:29:00 BRISEYDA
[2017-01-04] MEDS: PIPERACILLIN/TAZOBACTAM 3,375 MG in SODIUM CHLORIDE 0.9% 100 ML IV SCH ×3 (01:44→19:23)
[2017-01-04] MEDS: DOCUSATE SODIUM 100 MG CAPSULE PO PRN (05:36)
[2017-01-04] MEDS: ENOXAPARIN 40 MG/0.4 ML SYRINGE SUBCUT SCH (05:37)
[2017-01-04 06:16] LABS: Basophils # 0.1 10*3/uL (0.0-0.2); Basophils % 0.5 % (0.0-0.8); Eosinophils # 0.2 10*3/uL (0.0-0.87); Eosinophils % 1.6 % (0.00-10.9); Hematocrit 36.6 VOL% (42.0-52.0); Hemoglobin 12.8 GM/DL (14.0-18.0); Immature Granulocytes % 0.2 %; Immature Granulocytes Absolute 0.03 #; Lymphocytes % 7.4 % (21.2-54.2); Mean Corpuscular Hemoglobin 30 PG (27-34); Mean Corpuscular Volume 86.3 FL (87-102); Mean Platelet Volume 10.1 FL (9.6-12.0); Monocytes # 1.5 10*3/uL (0.11-0.8); Monocytes % 11.4 % (1.7-12.7); Neutrophils # 10.2 10*3/uL (1.4-7.4); Neutrophils % 78.9 % (38.7-73.9); Platelet Count 274 T/CUMM (130-400); Red Blood Count 4.24 MC/CUMM (3.8-5.5); Red Cell Distribution Width 12.8 % (9.3-17.3); White Blood Count 12.9 T/CUMM (4-12)
[2017-01-04] MEDS: metroNIDAZOLE INJ 500 MG in PREMIX 1 EACH IV SCH ×3 (06:34→23:15)
--- NOTE | 2017-01-04 07:00 | Event Note ---
He has right upper quadrant pain as expected. He is not then up out of bed as much as he needs to. He had low-grade temperature last night. I am going to encourage more ambulation today. He remains afebrile then possibly later today or tomorrow we can look at discharge.
[2017-01-04] MEDS ORDERED: LACTULOSE 20 GM/30 ML UDCUP PO ONE (07:01)
[2017-01-04 07:06] LABS: Albumin 2.6 G/DL (3.4-5.0); Bilirubin,Total 1.6 MG/DL (0.2-1.0); Calcium 8.4 MG/DL (8.5-10.1); Potassium 3.7 MMOL/L (3.5-5.1); Total Protein 6.4 G/DL (6.4-8.3)
[2017-01-04] MEDS: PANTOPRAZOLE 40 MG VIAL IV SCH ×2 (08:20→20:41)
[2017-01-04] MEDS ORDERED: MORPHINE 2 MG/1 ML SYRINGE IV PRN (09:55)
[2017-01-04] MEDS: diphenhydrAMINE CAP 25 MG CAPSULE PO PRN (10:31)
[2017-01-04] MEDS: ONDANSETRON 4 MG/2 ML VIAL IV PRN ×2 (13:14→20:41)
[2017-01-04] MEDS: HYDROmorphone PCA 30 MG/30 ML SYRINGE IV SCH (14:58)
[2017-01-05] MEDS: PIPERACILLIN/TAZOBACTAM 3,375 MG in SODIUM CHLORIDE 0.9% 100 ML IV SCH ×2 (03:00→09:00)
[2017-01-05 03:59] LABS: Basophils # 0.1 10*3/uL (0.0-0.2); Basophils % 0.5 % (0.0-0.8); Eosinophils # 0.1 10*3/uL (0.0-0.87); Eosinophils % 0.9 % (0.00-10.9); Hematocrit 37.1 VOL% (42.0-52.0); Immature Granulocytes % 0.5 %; Immature Granulocytes Absolute 0.08 #; Lymphocytes # 1.2 10*3/uL (1.4-4.0); Lymphocytes % 7.8 % (21.2-54.2); Mean Corpuscular Hemoglobin 30 PG (27-34); Mean Corpuscular Volume 86.5 FL (87-102); Mean Platelet Volume 10.1 FL (9.6-12.0); Monocytes # 1.6 10*3/uL (0.11-0.8); Neutrophils # 11.7 10*3/uL (1.4-7.4); Neutrophils % 79.3 % (38.7-73.9); Platelet Count 304 T/CUMM (130-400); Red Blood Count 4.29 MC/CUMM (3.8-5.5); Red Cell Distribution Width 12.8 % (9.3-17.3); White Blood Count 14.8 T/CUMM (4-12)
[2017-01-05] MEDS: ACETAMINOPHEN 325 MG TABLET PO PRN ×2 (04:47→14:35)
[2017-01-05] MEDS: ENOXAPARIN 40 MG/0.4 ML SYRINGE SUBCUT SCH (06:25)
[2017-01-05] MEDS: metroNIDAZOLE INJ 500 MG in PREMIX 1 EACH IV SCH ×2 (06:33→14:35)
[2017-01-05 08:33] LABS: Basophils # 0.1 10*3/uL (0.0-0.2); Basophils % 0.5 % (0.0-0.8); Eosinophils # 0.1 10*3/uL (0.0-0.87); Eosinophils % 0.9 % (0.00-10.9); Hematocrit 36.6 VOL% (42.0-52.0); Hemoglobin 13.1 GM/DL (14.0-18.0); Immature Granulocytes % 0.4 %; Immature Granulocytes Absolute 0.06 #; Mean Corpuscular HGB Conc 35.8 GM/DL (32-36); Mean Corpuscular Hemoglobin 31 PG (27-34); Mean Corpuscular Volume 85.7 FL (87-102); Mean Platelet Volume 9.6 FL (9.6-12.0); Monocytes # 1.3 10*3/uL (0.11-0.8); Monocytes % 9.1 % (1.7-12.7); Neutrophils # 12.1 10*3/uL (1.4-7.4); Neutrophils % 82.1 % (38.7-73.9); Platelet Count 299 T/CUMM (130-400); Red Blood Count 4.27 MC/CUMM (3.8-5.5); Red Cell Distribution Width 12.7 % (9.3-17.3); White Blood Count 14.7 T/CUMM (4-12)
[2017-01-05] MEDS: PANTOPRAZOLE 40 MG VIAL IV SCH (08:57)
[2017-01-05] MEDS: ONDANSETRON 4 MG/2 ML VIAL IV PRN (08:57)
[2017-01-05 09:13] LABS: Albumin 2.7 G/DL (3.4-5.0); Calcium 8.6 MG/DL (8.5-10.1); Potassium 3.4 MMOL/L (3.5-5.1); Total Protein 6.4 G/DL (6.4-8.3)
[2017-01-05 09:18] LABS: Apearance,Urine CLEAR (Clear); Bilirubin,Urine Negative (Negative); Blood, Urine Negative (Negative); Glucose,Urine (UA) Negative (Negative); Ketones,Urine 80 mg/dL (Negative); Mucus,Urine Occasional /LPF (Occasional); Nitrite,Urine Negative (Negative); Protein,Urine 30 MG/DL; RBC,Urine 3 /HPF (0-4); Urine Color Yellow (Yellow); Urine Urobilinogen < 2.0 EU/DL (0.2-1.0); WBC,Urine 3 /HPF (0-6)
--- NOTE | 2017-01-05 09:25 | XRay Report ---
XR chest 2V Indication: Elevated white blood cell count Comparison: 01 January 2017 Findings: The heart and mediastinum are normal in size and configuration. The pulmonary vascularity is normal in caliber. Linear densities are present in both lung bases. No other lung infiltrates, effusions, pneumothorax or other abnormality is demonstrated. Impression: Linear densities are present in both lung bases. No other abnormality is seen. PROCEDURE INTERPRETED AT [facility] DEPARTMENT OF RADIOLOGY Final Report Signed by: Dr. Darrin Barbosa
--- NOTE | 2017-01-05 14:58 | Event Note ---
He feels better and has been ambulating in the felix. He had a low-grade temperature about 36 hours ago and none since. His white blood cell count is still mildly elevated. His vital signs are normal. He has had some hiccups but otherwise his abdomen is benign. He is tolerating a diet. His wound looks good. He wants to go home. I have obtained a CT scan of his abdomen but do not have radiology's interpretation. I see inflammatory change around his pancreas but no obvious abscess or other pathology. His liver function tests are close to normal now. If his CT scan comes back okay I will be all right with him going home. I have given him a few doses of Thorazine for his hiccups. He plans to get follow-up care in [place]. I am happy to see him back in follow-up for his postoperative care here and he understands that.
--- NOTE | 2017-01-05 15:38 | CT Report ---
History: Leukocytosis. Abdominal pain. Recent cholecystectomy Date: 01/05/2017 Study: CT abdomen and pelvis with IV contrast Comparison exam: No previous CT available Technique: Spiral CT sections were obtained from the lung bases to the pubic symphysis following oral contrast and 100 mL Omnip[address] abdomen: There is mild bilateral pleural effusion. There is some mild atelectatic change in the lower lobes and lingula. The patient is status post recent cholecystectomy. There is an occasional punctate gas density bubble in the right upper abdomen which could represent expected postsurgical finding. There is no biliary dilatation. There is mild diffuse fatty infiltration of the liver. The liver, spleen, adrenal glands, and kidneys are otherwise normal. There is bilateral renal excretion without hydronephrosis. There is strandy and hazy change in the peripancreatic fat without discrete pancreatic mass or overt pancreatic enlargement. Pancreatitis is suspected. There is a small amount of localized fluid in the lesser sac of the peritoneum and also in the anterior right upper abdomen. Each of these localized fluid collections measures approximately 3.5 cm maximum diameter, and neither has well-defined capsule. There is no [place] bowel obstruction. The appendix is not seen with certainty, though there is no evidence to suggest appendicitis. There is no aortic aneurysm. There is no adenopathy. There is postsurgical edema and soft tissue emphysema of the anterior abdominal wall, superiorly on the right. CT pelvis: There is no pelvic mass or abnormal pelvic fluid collection. Impression: Postsurgical changes right upper quadrant, including some minimal residual pneumoperitoneum, thought to be within acceptable range Localized fluid density in the lesser sac of the peritoneum and upper abdomen without well-defined capsule. This could represent expected postsurgical change, though consider short-term follow-up if elevated white blood cell count continues Peripancreatic inflammatory changes suggesting pancreatitis Mild bibasilar atelectasis and pleural effusion The CT exam was performed using one or more of the following dose reduction techniques: Automated exposure control, adjustment of the mA and/or kV according to patient size, or use of iterative reconstruction technique. PROCEDURE INTERPRETED AT [facility] DEPARTMENT OF RADIOLOGY Final Report Signed by: Dr. Margarita Stanford
[2017-01-05] MEDS: chlorproMAZINE 25 MG TABLET PO SCH ×2 (15:51→17:17)
[2017-01-05 16:48] VITALS: BP 154/84
--- NOTE | 2017-01-05 17:53 | Discharge Summary ---
Hospital Course - Hospital Course Hospital Course: The patient is 46 y/o male who presented to the ED with signs and symptoms of acute cholecystitis with concerns for choledocholithiasis. He underwent ERCP with CBD sphincterotomy and balloon stone extraction and unfortunately developed pancreatitis post-procedure. His lipase levels decreased and symptoms resolved and he ultimately underwent laparoscopic cholecystectomy converted to open cholecystectomy due to extensive adhesions from previous laparotomy. The patient was slow to progress postoperatively, but he was ultimately voiding, ambulating and tolerating oral intake without difficulty. His pain was well- controlled by oral analgesics. Persistent leukocytosis was noted but suspected associated with the resolving pancreatitis based on the evaluation performed including repeat CT scan of abd/pelvis. He was discharged home in good condition with plans to f/u at an outside facility. The patient was aware f/u with Dr. Guerrero was an option and contact information was provided. CXR for 01/01/17 identified a nodule and recommended f/u for resolution in 2 wks; if concernes persist, CT scan is recommended. This information was provided to the patient as he planned to f/u at an outside facility. Diagnosis - Discharge Diagnosis (1) Acute gallstone pancreatitis Status: Acute (2) Choledocholithiasis with obstruction Status: Acute (3) Cholelithiasis and cholecystitis without obstruction Status: Acute Specialty Discharge - Follow Up or Referrals Follow up with: Gonzalo Guerrero III., MD [Physician] - () Discharge Plan - Discharge Data Disposition: Disch To Home/Self Care Condition at Discharge: Stable Discharge Diet: advance to your usual diet Activity: no lifting (>10 lb), other (Avoid heavy lifting and/or aerobic activity) Hygiene: may shower Driving: not until seen by doctor Contact your physician if you experience:: fever over 101, Redness or swelling, Nausea/Vomiting, Shortness of breath, Bleeding, pain uncontrolled by pain medications Wound / Dressing Care Instructions: Keep surgical incision clean, dry and covered. Do not soak or submerge wound. Pat wound dry. - Discharge Medications New HYDROcodone/ACETAMIN 7.5-325 [[place] 7.5-325] 1 tablet PO Q4H PRN tablet PRN Reason: Pain Moderate (4-7) chlorproMAZINE TAB [Thorazine Tab] 25 mg PO Q6H tablet Discontinued Omeprazole Magnesium [Prilosec Otc] 20 mg PO DAILY - Follow Up or Referral Follow Up: Gonzalo Guerrero III., MD [Physician] - () - Forms/Instructions Instructions: Open Cholecystectomy (DC) Additional Discharge Instructions: -F/u with PCP or surgeon in 1 wk. If f/u is not obtainable, recommend f/u with Dr. Guerrero office using contact information provided. -Recommend f/u chest XR to assess resolution of lung nodule noted on 01/01/2017 chest xr. If nodule is not resolving, recommend CT scan of chest with IV contrast for further assessment. Exam - Constitutional Vitals: Period Temp Pulse Resp BP Sys/Edwards Pulse Ox Last 24 Hr 98.1 F-98.7 F 72-93 18-20 143-154/84-100 93-98 Discharge Results Procedures and tests throughout hospitalization: Pending Orders 01/06/17 04:00 CMP [Comprehensive Metabolic Panel] IN AM Comp Blood Count Auto Diff IN AM 12/30/2016 Endoscopic retrograde cholangiopancreatography with sphincterotomy and balloon stone extraction 01/02/2017 Laparoscopic converted to open cholecystectomy with intraoperative cholangiogram Pathology: chronic cholecystitis; cholelithiasis Labs on day of discharge: Labs from last 24 hours 01/05/17 01/05/17 01/05/17 08:25 08:25 07:55 WBC 14.7 H RBC 4.27 Hgb 13.1 L Hct 36.6 L MCV 85.7 L MCH 31 MCHC 35.8 RDW 12.7 Plt Count 299 MPV 9.6 Neut % (Auto) 82.1 H Lymph % (Auto) 7.0 L [place] % (Auto) 9.1 Eos % (Auto) 0.9 Baso % (Auto) 0.5 Neut # (Auto) 12.1 H Lymph # (Auto) 1.0 L [place] # (Auto) 1.3 H Eos # (Auto) 0.1 Baso # (Auto) 0.1 Immature Gran % 0.4 Nucleated RBC % 0.0 Immature Gran # 0.06 Nucleated RBCs # 0.00 Immature Plt Fraction 0.0 Sodium 136 Potassium 3.4 L Chloride 99 Carbon Dioxide 33 H Anion Gap 7.4 BUN 13 Creatinine 0.90 GFR Calculation 126 BUN/Creatinine Ratio 14.00 Glucose 115 H Calculated Osmolality 272.0 L Calcium 8.6 Total Bilirubin 1.00 AST 30 ALT 67 H Alkaline Phosphatase 124 H Total Protein 6.4 Albumin 2.7 L Globulin 3.7 H Albumin/Globulin Ratio 0.7 L Amylase 74 Lipase 365.0 D Urine Color Yellow Urine Appearance Clear Urine pH 6.0 Ur Specific [place] 1.020 Urine Protein 30 Urine Glucose (UA) Negative Urine Ketones 80 Urine Blood Negative Urine Nitrate Negative Urine Bilirubin Negative Urine Urobilinogen < 2.0 H Urine Leukocytes Trace Urine RBC 3 Urine WBC 3 Urine Mucus Occasional Ur Culture Indicated? Not indicated 01/05/17 03:24 WBC 14.8 H RBC 4.29 Hgb 13.0 L Hct 37.1 L MCV 86.5 L MCH 30 MCHC 35.0 RDW 12.8 Plt Count 304 MPV 10.1 Neut % (Auto) 79.3 H Lymph % (Auto) 7.8 L [place] % (Auto) 11.0 Eos % (Auto) 0.9 Baso % (Auto) 0.5 Neut # (Auto) 11.7 H Lymph # (Auto) 1.2 L [place] # (Auto) 1.6 H Eos # (Auto) 0.1 Baso # (Auto) 0.1 Immature Gran % 0.5 Nucleated RBC % 0.0 Immature Gran # 0.08 Nucleated RBCs # 0.00 Immature Plt Fraction 0.0 Sodium Potassium Chloride Carbon Dioxide Anion Gap BUN Creatinine GFR Calculation BUN/Creatinine Ratio Glucose Calculated Osmolality Calcium Total Bilirubin AST ALT Alkaline Phosphatase Total Protein Albumin Globulin Albumin/Globulin Ratio Amylase Lipase Urine Color Urine Appearance Urine pH Ur Specific [place] Urine Protein Urine Glucose (UA) Urine Ketones Urine Blood Urine Nitrate Urine Bilirubin Urine Urobilinogen Urine Leukocytes Urine RBC Urine WBC Urine Mucus Ur Culture Indicated? DS: Provider Date of admission: 12/29/16 09:08 Primary care physician: . No PCP Attending physician on admission: Gonzalo Guerrero III., Consults: 12/30/16 07:15 Consult to Physician [CONS] Routine Comment: Obstructive jaundice Consulting Provider: Daniel Perez Consulting Provider Notified: Yes When should Consulting Provider be notified: Now Consult to Specialist Group: Gastroenterology When should Consulting Provider be notified: Now Person Notified: al bowens Date Notified: 12/30/16 Time Notified: 08:51 Discharging clinician: Kimberlee Pearl PA-C
== END 2017-01-05 18:00 | disposition home or self-care (01) | DRG 414 ==
LOC: N.ED 05:52 → N.EDINP 09:08 → N.3E 09:59
PROVIDERS: ADMIT Surgery; ATTEND Surgery
PROC: ERCPWSP (ICD-10-PCS; 2016-12-30 10:20)
PROC: LAPCHOL (2017-01-02 06:35)